=== PATIENT | male | born 1980 | race American Indian/Alaskan Native ===

== ENCOUNTER 2016-10-01 18:21 | Emergency (ER) | payer SELFPAY ==
--- NOTE | 2016-10-01 20:40 | Emergency Department Report ---
HPI - General Chief Complaint: Back Pain/Injury Time Seen by Provider: 10/01/16 20:12 - HPI HPI: Patient is a 36-year-old male who presents to the complaining of lower right sided back pain that's been intermittent in for the past 3 years. 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 Patient describes it as throbbing in nature's fell on his right lower back and sometimes right thigh muscle. Patient rates pain about a 5 out of 10 intensity. Patient states pain is worsened when he moves the right leg. She denies fever assess chills/nausea/vomiting/diarrhea/constipation or any other problems. ED Past Medical Hx - Past Medical History Previous Medical History?: No - Surgical History Past Surgical History?: No - Social History Smoking Status: Never Smoker Substance Use Type: None - Medications Home Medications: Home Medications Medication Instructions Recorded Confirmed Last Taken Type Cyclobenzaprine [Flexeril 10 MG 10 mg PO QHS #20 tablet 10/01/16 Unknown Rx TAB] Ibuprofen [Motrin 800 MG tab] 800 mg PO TID #30 tablet 10/01/16 Unknown Rx ED Review of Systems ROS: Stated complaint: BACK PAIN Other details as noted in HPI Constitutional: denies: chills, fever Eyes: denies: eye pain, eye discharge, vision change ENT: denies: ear pain, throat pain Respiratory: denies: cough, shortness of breath, wheezing Cardiovascular: denies: chest pain, palpitations Endocrine: no symptoms reported Gastrointestinal: denies: abdominal pain, nausea, diarrhea Genitourinary: denies: urgency, dysuria Musculoskeletal: denies: back pain, joint swelling, arthralgia Skin: denies: rash, lesions Neurological: denies: headache, weakness, numbness, paresthesias, confusion, abnormal gait, vertigo, other Psychiatric: denies: anxiety, depression Hematological/Lymphatic: denies: easy bleeding, easy bruising Physical Exam - Physical Exam Vital Signs: Vital Signs 10/01/16 19:35 Temperature 99 F Pulse Rate 99 H Blood Pressure 152/102 O2 Sat by Pulse 99 Oximetry Physical Exam: GENERAL: Alert and oriented x3, no apparent distress, Normal Gait, atraumatic. HEAD: Head is normocephalic and a-traumatic. EYES: Extra ocular muscles are intact. Pupils are equal, round, and reactive to light and accommodation. MOUTH:Mouth is well hydrated and without lesions. Posterior pharynx clear, no exudate or lesions. Patent airways. NECK: Supple. Non edematous, No carotid bruits. No lymphadenopathy or thyromegaly. LUNGS: Symetrical with respiration, No wheezing, no rales or crackles, CTAB. HEART: S1, S2 present, regular rate and rhythm without murmur, no rubs, no gallops. ABDOMEN: No organomegaly was noted,Positive bowel sounds, soft, and non- distended. . Nontender to palpation on all Quadrants, NO CVA tenderness. EXTREMITIES/MUSCULOSKELETAL: No cyanosis, clubbing, rash, lesions or edema. Full ROM bilaterally. UE/LE Pulses 2+ bilaterally. LE and UE 5+ strength bilaterally. Mild tenderness with palpation of the right latissimus dorsi and gluteal xiao muscle. no spine tenderness. Straight leg raise negative NEUROLOGIC: No focal Deficit, Cranial nerves II through XII are grossly intact. No loss of sensation, PSYCHIATRIC: Mood is congruent with affect, denies suicidal or homicidal ideations. SKIN: Warm and dry, No lesions, No ulceration or induration present. ED Course Vital Signs 10/01/16 19:35 Temperature 99 F Pulse Rate 99 H Blood Pressure 152/102 O2 Sat by Pulse 99 Oximetry ED Medical Decision Making - Medical Decision Making 36-year-old male presents with muscle strain. ED course: Patient received 800 mg of Motrin and 10 mg of Flexeril. Discussed patient have follow-up with the primary care physician. Suggests the patient to possibly see a chiropractor's mentioned to primary care for referral. Blood pressure prior to discharge reduced. Vital signs stable. Patient has no respiratory distress or acute distress Discussed follow-up with referrals are given. Discussed discharge home medications and effects. Critical care attestation.: If time is entered above; I have spent that time in minutes in the direct care of this critically ill patient, excluding procedure time. ED Disposition Clinical Impression: Strain of muscle, fascia and tendon of lower back, initial encounter Disposition: DISCHARGED TO HOME OR SELFCARE Is pt being admited?: No Does the pt Need Aspirin: No Condition: Stable Instructions: Muscle Strain (ED), Trigger Point Pain (ED), Musculoskeletal Pain (ED), Heat Pack Application (ED) Prescriptions: Cyclobenzaprine [Flexeril 10 MG TAB] 10 mg PO QHS #20 tablet Ibuprofen [Motrin 800 MG tab] 800 mg PO TID #30 tablet Referrals: PRIMARY CARE, [Primary Care Provider] - 3-5 Days [facility] [Outside] - 3-5 Days [facility] [Outside] - 3-5 Days [facility] [Outside] - 3-5 Days [facility] [Outside] - 3-5 Days ANGEL CHAMPION MD [Referring] - 3-5 Days SHELBY ESTES MD [Referring] - 3-5 Days MARKO SOUTH MD [Staff Physician] - 3-5 Days Forms: Work/School Release Form(ED) Time of Disposition: 20:50
[2016-10-01 20:41] VITALS: BP 139/78
[2016-10-01] MEDS ORDERED: MOTRIN PO ONE (20:43)
[2016-10-01] MEDS ORDERED: FLEXERIL PO ONE (20:43)
== END 2016-10-01 20:58 | disposition home or self-care (01) ==
LOC: ED 18:21
DX: S39.012A Strain of muscle, fascia and tendon of lower back, initial encounter (principal); X58.XXXA Exposure to other specified factors, initial encounter; Y93.66 Activity, soccer; Y99.8 Other external cause status; Y92.89 Other specified places as the place of occurrence of the external cause
CPT/HCPCS: 99282